=== PATIENT | female | born 1950 | race Caucasian/White ===

== ENCOUNTER → 2017-05-23 08:17 | Outpatient (CLI) | payer BC, SELFPAY ==
--- NOTE | 2017-05-23 08:20 | HPBI_ITS ---
MAMMOGRAPHY - BILATERAL SCREENING REASON FOR EXAM: Female, 66 years old. Routine annual screening examination. PERTINENT HISTORY: Sister with breast cancer. Grandmother with breast cancer. Remote right excisional breast biopsy. TECHNIQUE: Digital bilateral breast teresa (3D mammographic acquisition) in the CC and MLO projections. 2-D mediolateral oblique (MLO) and craniocaudad (CC) views of both breasts were obtained. CAD: Full Field Digital Mammography with Computer Added Detection was performed. COMPARISON: Comparison is made with prior study dated May 18, 2016 and March 13, 2015. FINDINGS: Breast Composition: There are scattered areas of fibroglandular density. There are no dominant masses or suspicious calcifications. No other significant abnormalities are identified. There has been no significant change since the prior study. HPBI/SCREENING MAMM (CAD), BILAT IMPRESSION: Stable bilateral screening mammogram. Yearly follow-up mammogram recommended. (A) ASSESSMENT CATEGORY: BIRADS Category 1: Negative. A letter regarding these results will be sent to the patient by the facility within 30 days. Approximately 10% of breast cancers are not detected by mammography. A normal mammogram should not delay biopsy of a clinically suspicious abnormality. [id number] Electronically Signed: Jas Pereyra MD at 10:20 EDT Tel [phone], Service support ,
== END ==
PROVIDERS: Family Provider Family Medicine; PCP Family Medicine; Visit Provider Family Medicine
DX: Z12.31 Encounter for screening mammogram for malignant neoplasm of breast (principal)
CPT/HCPCS: 77063; 77067

== ENCOUNTER → 2017-06-19 09:11 | Outpatient (CLI) | payer BC, SELFPAY ==
[2017-06-19 12:19] LABS: Absolute Lymphocyte Count 3.48 X10^3/ul (0.83-4.51); Absolute Neutrophil Count 3.6 X10^3/uL (2.0-7.7); Basophil# 0.03 X10^3/uL; Basophil% 0.4 % (0-1); Eosinophils% 2.5 % (0-5); Hematocrit 38.1 % (37-47); Hemoglobin 12.4 g/dl (12.0-15.0); Lymphocyte # 3.48 X10^3/ul (4.0); Lymphocyte % 43.9 % (19-41); Mean Corp Hgb Conc 32.5 g/gl (32-36); Mean Corpuscular Hgb 31.3 pg (27.0-32.0); Mean Corpuscular Volume 96.2 fL (81-99); Mean Platelet Vol. 9.9 fl (6.2-12.0); Monocyte# 0.61 X10^3/uL; Monocyte% 7.7 % (0-10); Neutrophil # 3.57 X10^3/uL (2.7-7.7); Neutrophil % 45.1 % (47-70); Platelet Count 227 K/mm3 (150-450); RBC Distribution Width CV 13.3 % (11.6-14.6); RBC Distribution Width SD 46.7 fl (35.1-43.9); Red Blood Count 3.96 M/mm3 (4.2-5.4); White Blood Count 7.9 K/mm3 (4.4-11.0)
[2017-06-19 12:21] LABS: POSITIVE COUNT NO; POSITIVE DIFFERENTIAL NO; POSITIVE MORPHOLOGY NO
[2017-06-19 12:46] LABS: BUN 22 mg/dL (7-18); Creatinine, Serum 0.74 mg/dL (0.55-1.02); EST Glomerular Filtration Rate 84 mL/min (>60); Glucose 83 mg/dL (74-106)
[2017-06-19 12:47] LABS: ALB/GLOB Ratio 1.2 RATIO (0.9-2.4); AST(SGOT) 31 U/L (15-37); Alanine Aminotransfer ALT/SGPT 79 U/L (13-56); Albumin, Serum 3.6 g/dL (3.2-5.0); Alkaline Phosphatase 80 U/L (45-117); Anion Gap 7 (5-15); BUN/Creat Ratio 29.6 RATIO (10-20); Calcium,Total 8.1 mg/dL (8.5-10.1); Chloride 103 mmol/L (98-107); Cholesterol 171 mg/dL (200); Est Glom Filt Rate - Afr Amer 101 mL/min (>60); Globulin 3.1 g/dL (2.2-4.2); High Density Lipoprotein 63 mg/dL; Potassium 3.7 mmol/L (3.5-5.1); Protein, Total 6.7 g/dL (6.4-8.2); Sodium Level 138 mmol/L (136-145); Thyroid Stim Hormone (TSH) 1.61 uIU/mL (0.358-3.74); Triglycerides 135 mg/dL; Very Low Density Lipoprotein 27 mg/dL (5-40)
== END ==
PROVIDERS: Family Provider Family Medicine; PCP Family Medicine; Visit Provider Family Medicine
DX: I10 Essential (primary) hypertension (principal); E78.5 Hyperlipidemia, unspecified; R53.83 Other fatigue
CPT/HCPCS: 36415; 80053; 80061; 84443; 85025

== ENCOUNTER → 2017-06-22 13:00 | Outpatient (CLI) | payer BC, SELFPAY | PROVIDERS: Family Provider Family Medicine; PCP Family Medicine; Visit Provider Nurse Practitioner Acute Care | DX: G47.33 Obstructive sleep apnea (adult) (pediatric) (principal) | CPT/HCPCS: 98960; G0463 ==

== ENCOUNTER → 2018-03-12 16:53 | Outpatient (CLI) | payer MEDICARE, SELFPAY ==
--- NOTE | 2018-03-12 17:01 | RAD_ITS ---
STUDY: X-RAY CHEST REASON FOR EXAM: Female, 67 years old. Cough TECHNIQUE: PA and lateral chest COMPARISON: None. FINDINGS: Slight blunting of the cost phrenic angles, most likely associated with mild atelectasis. Minimal effusion cannot be entirely excluded. Lungs otherwise clear. Normal cardiac mediastinal silhouette, kim, pleural margins. No acute osseous process. Prior cholecystectomy. RAD/Chest PA and Lateral IMPRESSION: Minimal blunting of the costophrenic angles is most likely atelectatic. Minimal effusions cannot be entirely excluded but considered unlikely. The chest is otherwise clear. Electronically Signed: Magdiel Perez MD at 15:59 EST Tel , Service support ,
== END ==
PROVIDERS: Family Provider Family Medicine; PCP Family Medicine; Referring Provider Family Medicine; Visit Provider Family Medicine
DX: J20.9 Acute bronchitis, unspecified (principal)
CPT/HCPCS: 71046

== ENCOUNTER → 2018-04-24 07:51 | Outpatient (CLI) | payer MEDICARE, OTHER, SELFPAY ==
--- NOTE | 2018-04-24 10:24 | NEURO ---
NCS and/or EMG Patient Report Ordering Doctor: Sanaz Mejia DATE OF SERVICE: 04/24/18 This is a bilateral lower extremity nerve conduction study performed on this 67-year-old female with a history of restless leg syndrome and narcolepsy and a intermittent symptom of fleeting pain and tingling radiating from the inner aspect of her feet bilaterally up her legs not associated with back pain. She has had a total of 5 episodes since January usually lasting about 1 minute usually while ambulating. She is healthy otherwise although she says she was drinking daily for approximately 2 years however in January 2018 she decreased her alcohol intake. EMG of the lower extremities was also ordered but deferred by the patient. Bilateral lower extremity sensory and motor nerve conduction studies are performed. The medial plantar responses bilaterally are absent. Sural sensory responses bilaterally demonstrate normal latencies and amplitudes. The common peroneal motor distal latencies amplitudes and conduction velocities are preserved and the tibial motor latencies and amplitudes are preserved although the conduction velocities are mildly slowed. Common peroneal and tibial F wave latencies are relatively preserved and tibial H reflex responses bilaterally are normal. Impression there is absence of the medial plantar responses bilaterally consistent with compression neuropathy bilaterally. There is no evidence of neuropathy otherwise. The patient was encouraged to continue her current abstention from alcohol. EMG testing was deferred after discussion of risks and benefits.
== END ==
PROVIDERS: Family Provider Family Medicine; PCP Family Medicine; Referring Provider Nurse Practitioner Acute Care; Visit Provider Nurse Practitioner Acute Care
DX: R20.2 Paresthesia of skin (principal); M79.604 Pain in right leg; M79.605 Pain in left leg
CPT/HCPCS: 95911

== ENCOUNTER → 2018-06-12 | Outpatient (CLI) | payer MEDICARE, SELFPAY ==
[2018-06-12 15:23] LABS: Absolute Lymphocyte Count 1.76 X10^3/ul (0.83-4.51); Absolute Neutrophil Count 2.6 X10^3/uL (2.0-7.7); Basophil# 0.06 X10^3/uL; Basophil% 1.2 % (0-1); Eosinophil# 0.13 X10^3/uL; Eosinophils% 2.7 % (0-5); Hematocrit 37.2 % (37-47); Hemoglobin 12.4 g/dl (12.0-15.0); Lymphocyte # 1.76 X10^3/ul (4.0); Mean Corp Hgb Conc 33.3 g/gl (32-36); Mean Corpuscular Hgb 30.5 pg (27.0-32.0); Mean Corpuscular Volume 91.4 fL (81-99); Mean Platelet Vol. 10.4 fl (6.2-12.0); Monocyte# 0.37 X10^3/uL; Monocyte% 7.6 % (0-10); Neutrophil # 2.56 X10^3/uL (2.7-7.7); Neutrophil % 52.3 % (47-70); Platelet Count 222 K/mm3 (150-450); RBC Distribution Width CV 12.5 % (11.6-14.6); Red Blood Count 4.07 M/mm3 (4.2-5.4); White Blood Count 4.9 K/mm3 (4.4-11.0)
[2018-06-12 15:34] LABS: POSITIVE COUNT NO; POSITIVE DIFFERENTIAL NO; POSITIVE MORPHOLOGY NO
[2018-06-12 15:46] LABS: ALB/GLOB Ratio 1.1 RATIO (0.9-2.4); AST(SGOT) 34 U/L (15-37); Alanine Aminotransfer ALT/SGPT 54 U/L (13-56); Albumin, Serum 3.9 g/dL (3.2-5.0); Alkaline Phosphatase 85 U/L (45-117); Anion Gap 6 (5-15); BUN 19 mg/dL (7-18); BUN/Creat Ratio 22.8 RATIO (10-20); Calcium,Total 8.5 mg/dL (8.5-10.1); Chloride 103 mmol/L (98-107); Cholesterol 159 mg/dL (200); Creatinine, Serum 0.83 mg/dL (0.55-1.02); EST Glomerular Filtration Rate 73 mL/min (>60); Est Glom Filt Rate - Afr Amer 88 mL/min (>60); Globulin 3.4 g/dL (2.2-4.2); Glucose 94 mg/dL (74-106); High Density Lipoprotein 50 mg/dL; Potassium 3.8 mmol/L (3.5-5.1); Protein, Total 7.3 g/dL (6.4-8.2); Sodium Level 137 mmol/L (136-145); Triglycerides 108 mg/dL; Very Low Density Lipoprotein 22 mg/dL (5-40)
== END | disposition home or self-care (01) ==
PROVIDERS: Family Provider Family Medicine; PCP Family Medicine; Visit Provider Family Medicine
DX: Z00.00 Encounter for general adult medical examination without abnormal findings (principal); E78.5 Hyperlipidemia, unspecified
CPT/HCPCS: 36415; 80053; 80061; 85025

== ENCOUNTER → 2018-07-26 09:57 | Outpatient (CLI) | payer MEDICARE, OTHER, SELFPAY ==
--- NOTE | 2018-07-26 10:01 | BI_ITS ---
MAMMOGRAPHY - BILATERAL SCREENING REASON FOR EXAM: Female, 67 years old. Routine annual screening examination. PERTINENT HISTORY: Sister with breast cancer. Grandmother with breast cancer. Remote right excisional breast biopsy. TECHNIQUE: Digital bilateral breast teresa (3D mammographic acquisition) in the CC and MLO projections. 2-D mediolateral oblique (MLO) and craniocaudad (CC) views of both breasts were obtained. CAD: Full Field Digital Mammography with Computer Added Detection was performed. COMPARISON: Comparison is made with prior study dated May 18, 2016 and March 13, 2015. FINDINGS: Breast Composition: There are scattered areas of fibroglandular density. There are no dominant masses or suspicious calcifications. Stable appearance of the small bilateral axillary lymph nodes. No other significant abnormalities are identified. There has been no significant change since the prior study. BI/SCREENING MAMM (CAD), BILAT IMPRESSION: Stable bilateral screening mammogram. Yearly follow-up mammogram recommended. (A) ASSESSMENT CATEGORY: BIRADS Category 2: Benign. A letter regarding these results will be sent to the patient by the facility within 30 days. Approximately 10% of breast cancers are not detected by mammography. A normal mammogram should not delay biopsy of a clinically suspicious abnormality. [id number] Electronically Signed: Jas Pereyra, at 12:54 EDT , Service support ,
--- NOTE | 2018-07-26 10:18 | BD_ITS ---
STUDY: DUAL ENERGY X-RAY ABSORPTIOMETRY / DXA REASON FOR EXAM: Female, 67 years old. Patient is postmenopausal. TECHNIQUE: Bone Mineral Density (BMD) measurements of lumbar spine and bilateral hips were obtained. COMPARISON: Comparison is made with prior study dated August 19, 2010. FINDINGS: Lumbar Spine (L1-L4): g/cm2 (1.317) / T-score (1.1) / Z-score (2.7) Findings are suggestive of normal bone density with a low fracture risk. Left Femur Total: g/cm2 (1.175) / T-score (1.3) / Z-score (2.6) Left Femoral Neck: g/cm2 (1.05 to) / T-score (0.1) / Z-score (1.6) Right Femur Total: g/cm2 (1.206) / T-score (1.6) / Z-score (2.8) Right Femoral Neck: g/cm2 (1.042) / T-score (0.0) / Z-score (1.5) The T-Scores on the most recent prior examination were: Lumbar Spine (L1-L4): There has been worsening of bone density since the previous examination. Left Femur Total: which represents a worsening of 0.6%. Right Femur Total: which represents an improvement of 0.5%. BD/Dexa Bone Density Study IMPRESSION: The patient is considered normal as outlined below according to World Tobin Organization (WHO) criteria with a low fracture risk. There has been worsening of bone density since the previous examination. Reference Information: The T-score is the number of standard deviations above or below the standard which is normal for young adults at their peak bone mineral density. The World Health Organization (WHO) interprets the T-scores as follows: Above -1 Normal bone density Between -1 and -2.5 Osteopenia Equal to / or below -2.5 Osteoporosis As a practical clinical guideline, osteopenia may be graded as follows: Mild -1 through -1.5 Moderate -1.6 through -2.0 Severe -2.1 through -2.4 The Z-score is the number of standard deviations above or below age-matched controls. A Z-score of less than -1.5 would be considered abnormal. References: 1. NIH Osteoporosis and Related Bone Diseases http://www.osteo.org 2. International Society for Clinical Densitometry http://www.iscd.org 3. National Osteoporosis Foundation http://www.nof.org Electronically Signed: Jas Pereyra, at 12:37 EDT , Service support ,
== END ==
PROVIDERS: Family Provider Family Medicine; PCP Family Medicine; Referring Provider Family Medicine; Visit Provider Family Medicine
DX: Z13.820 Encounter for screening for osteoporosis (principal); Z78.0 Asymptomatic menopausal state; Z12.31 Encounter for screening mammogram for malignant neoplasm of breast; Z80.3 Family history of malignant neoplasm of breast
CPT/HCPCS: 77063; 77067; 77080

== ENCOUNTER → 2020-01-18 10:17 | Outpatient (CLI) | payer MEDICARE, OTHER, SELFPAY ==
[2019-01-08 14:46] VITALS: BMI 29.2
--- NOTE | 2020-01-18 10:21 | BI_ITS ---
MAMMOGRAPHY - BILATERAL SCREENING REASON FOR EXAM: Female, 69 years old. Routine annual screening examination. PERTINENT HISTORY: Sister with breast cancer. Grandmother with breast cancer. Remote right excisional breast biopsy. TECHNIQUE: Digital bilateral breast adrianna (3D mammographic acquisition) in the CC and MLO projections. 2-D mediolateral oblique (MLO) and craniocaudad (CC) views of both breasts were obtained. CAD: Full Field Digital Mammography with Computer Added Detection was performed. COMPARISON: Comparison is made with prior study dated 07/26/2018 and 05/23/2017. FINDINGS: Breast Composition: There are scattered areas of fibroglandular density. There are no dominant masses or suspicious calcifications. Stable benign-appearing bilateral axillary lymph nodes. No other significant abnormalities are identified. There has been no significant change since the prior study. BI/SCREEN MAMM (CAD) W/ADRIANNA BILAT IMPRESSION: Stable bilateral screening mammogram. Yearly follow-up mammogram recommended. (A) ASSESSMENT CATEGORY: BIRADS Category 2: Benign. A letter regarding these results will be sent to the patient by the facility within 30 days. Approximately 10% of breast cancers are not detected by mammography. A normal mammogram should not delay biopsy of a clinically suspicious abnormality. [id number] Electronically Signed: Jas Pereyra, at 8:38 EST , Service support ,
== END ==
PROVIDERS: PCP Family Medicine; Referring Provider Family Medicine; Visit Provider Family Medicine
DX: Z12.31 Encounter for screening mammogram for malignant neoplasm of breast (principal); Z80.3 Family history of malignant neoplasm of breast
CPT/HCPCS: 77063; 77067

== ENCOUNTER 2020-05-07 11:44 | Outpatient (RCR) | payer MEDICARE, OTHER, SELFPAY ==
[2020-05-07] MEDS: COVID-19 VACC, MRNA(PFIZER)/PF 30 MCG/0.3 ML SYRINGE IM (14:37)
[2020-05-28] MEDS: COVID-19 VACC, MRNA(PFIZER)/PF 30 MCG/0.3 ML SYRINGE IM (14:07)
== END 2020-08-11 23:59 ==
LOC: IMMUN 11:44
PROVIDERS: PCP Family Medicine; Visit Provider Family Medicine
DX: Z23 Encounter for immunization (principal)
CPT/HCPCS: 0001A; 0002A; 91300

== ENCOUNTER → 2020-07-27 10:46 | Outpatient (CLI) | payer MEDICARE, OTHER, SELFPAY ==
[2020-07-27 11:22] LABS: Absolute Lymphocyte Count 2.39 X10^3/uL (0.83-4.51); Absolute Neutrophil Count 3.6 X10^3/uL (2.0-7.7); Basophil# 0.05 X10^3/uL; Basophil% 0.7 % (0-1); Eosinophil# 0.15 X10^3/uL; Eosinophils% 2.2 % (0-5); Hematocrit 40.2 % (37-47); Hemoglobin 13.5 g/dL (12.0-15.0); Lymphocyte # 2.39 X10^3/ul (0.83-4.51); Lymphocyte % 35.6 % (19-41); Mean Corp Hgb Conc 33.6 g/dL (32-36); Mean Corpuscular Hgb 30.4 pg (27.0-32.0); Mean Corpuscular Volume 90.5 fL (81-99); Mean Platelet Vol. 9.6 fl (6.2-12.0); Monocyte# 0.47 X10^3/uL; NRBC Flagged by Analyzer 0 % (0-5); Neutrophil # 3.64 X10^3/uL (2.7-7.7); Neutrophil % 54.2 % (47-70); Platelet Count 247 K/mm3 (150-450); RBC Distribution Width CV 12.7 % (11.6-14.6); RBC Distribution Width SD 42.2 fl (35.1-43.9); Red Blood Count 4.44 M/mm3 (4.2-5.4); White Blood Count 6.7 K/mm3 (4.4-11.0)
[2020-07-27 11:42] LABS: Hemoglobin A1c 5.4 % (3.8-5.6)
[2020-07-27 12:06] LABS: ALB/GLOB Ratio 1.1 RATIO (0.9-2.4); AST(SGOT) 34 U/L (15-37); Alanine Aminotransfer ALT/SGPT 65 U/L (13-56); Albumin, Serum 3.9 g/dL (3.2-5.0); Alkaline Phosphatase 81 U/L (45-117); Anion Gap 8 (5-15); BUN 14 mg/dL (7-18); BUN/Creat Ratio 17.5 RATIO (10-20); Calcium,Total 8.8 mg/dL (8.5-10.1); Chloride 97 mmol/L (98-107); Cholesterol 176 mg/dL (200); EST Glomerular Filtration Rate 76 mL/min (>60); Est Glom Filt Rate - Afr Amer 92 mL/min (>60); Free T3 2.5 pg/mL (2.18-3.98); Globulin 3.5 g/dL (2.2-4.2); Glucose 100 mg/dL (74-106); High Density Lipoprotein 54 mg/dL; Potassium 3.4 mmol/L (3.5-5.1); Protein, Total 7.4 g/dL (6.4-8.2); Sodium Level 135 mmol/L (136-145); T4 Free Direct 0.97 ng/dL (0.76-1.46); Thyroid Stim Hormone (TSH) 1.02 uIU/mL (0.358-3.74); Triglycerides 129 mg/dL; Very Low Density Lipoprotein 26 mg/dL (5-40)
== END ==
PROVIDERS: PCP Family Medicine; Referring Provider Family Medicine; Visit Provider Family Medicine
DX: I10 Essential (primary) hypertension (principal); E78.5 Hyperlipidemia, unspecified; E55.9 Vitamin D deficiency, unspecified; R53.83 Other fatigue; R73.01 Impaired fasting glucose
CPT/HCPCS: 36415; 80053; 80061; 82306; 83036; 84439; 84443; 84481; 85025

== ENCOUNTER → 2021-02-18 15:21 | Outpatient (CLI) | payer MEDICARE, OTHER, SELFPAY ==
--- NOTE | 2021-02-18 15:23 | BI_ITS ---
MAMMOGRAPHY - BILATERAL SCREENING REASON FOR EXAM: Female, 70 years old. Routine annual screening examination. PERTINENT HISTORY: Sister with breast cancer. Grandmother with breast cancer. TECHNIQUE: Digital bilateral breast adrianna (3D mammographic acquisition) in the CC and MLO projections. 2-D mediolateral oblique (MLO) and craniocaudad (CC) views of both breasts were obtained. CAD: Full Field Digital Mammography with Computer Added Detection was performed. COMPARISON: Comparison is made with prior study dated 01/18/2020 and 07/26/2018. FINDINGS: Breast Composition: The breasts are almost entirely fatty. There are no dominant masses or suspicious calcifications. Stable benign-appearing bilateral axillary No other significant abnormalities are identified. There has been no significant change since the prior study. BI/SCRN MAMM (CAD)W/ADRIANNA BILAT IMPRESSION: Stable bilateral screening mammogram. Yearly follow-up mammogram recommended. (A) ASSESSMENT CATEGORY: BIRADS Category 2: Benign. A letter regarding these results will be sent to the patient by the facility within 30 days. Approximately 10% of breast cancers are not detected by mammography. A normal mammogram should not delay biopsy of a clinically suspicious abnormality. [id number] Electronically Signed: Jas Pereyra MD at 8:28 EST , Service support ,
== END ==
PROVIDERS: PCP Family Medicine; Referring Provider Family Medicine; Visit Provider Family Medicine
DX: Z12.31 Encounter for screening mammogram for malignant neoplasm of breast (principal); Z80.3 Family history of malignant neoplasm of breast
CPT/HCPCS: 77063; 77067

== ENCOUNTER 2021-04-28 10:58 | Outpatient (CLI) | payer MEDICARE, OTHER, SELFPAY ==
[2021-04-28 12:02] LABS: NATERA MAILED SPECIMEN
== END 2021-04-28 23:59 | disposition home or self-care (01) ==
LOC: PAVLAB 11:00
PROVIDERS: PCP Family Medicine; Referring Provider Nurse Practitioner Women's Health; Visit Provider Nurse Practitioner Women's Health
DX: Z15.01 Genetic susceptibility to malignant neoplasm of breast (principal); Z80.3 Family history of malignant neoplasm of breast; Z80.0 Family history of malignant neoplasm of digestive organs
CPT/HCPCS: 36415

== ENCOUNTER 2021-05-13 20:00 | Outpatient (CLI) | payer MEDICARE, OTHER, SELFPAY | END 2021-05-13 23:59 | disposition home or self-care (01) | LOC: SL 21:14 | PROVIDERS: PCP Family Medicine; Visit Provider Nurse Practitioner Acute Care | DX: G47.33 Obstructive sleep apnea (adult) (pediatric) (principal) | CPT/HCPCS: 95810 ==

== ENCOUNTER → 2022-01-19 | Outpatient (CLI) | payer MEDICARE, OTHER, SELFPAY ==
--- NOTE | 2022-01-19 08:42 | RAD_ITS ---
STUDY: X-RAY - ESOPHAGUS (BARIUM SWALLOW) WITH FLUOROSCOPY REASON FOR EXAM: Female, 71 years old. DYSPHAGIA TECHNIQUE: 17 view(s) of the esophagus were obtained following swallowing of barium. FLUOROSCOPY TIME (if supplied): (32 seconds) minutes/seconds COMPARISON: None. FINDINGS: There is no demonstrated esophageal foreign body. There is no demonstrated stricture or mucosal abnormality. Normal gastroesophageal junction, without a demonstrated hiatal hernia. The patient ingested a 12 mm tablet of barium without any difficulty. Normal visualized aortic arch and descending thoracic aorta. Normal visualized pulmonary parenchyma. Normal visualized osseous structures of the thorax. RAD/Esophagus Single Contrast IMPRESSION: Normal plain film x-ray examination (barium swallow) of the esophagus. Electronically Signed: aJs Pereyra MD at 10:04 [facility] ,
== END | disposition home or self-care (01) ==
LOC: RAD 08:39
PROVIDERS: PCP Family Medicine; Referring Provider Otolaryngology; Visit Provider Otolaryngology
DX: R13.10 Dysphagia, unspecified (principal)
CPT/HCPCS: 74220

== ENCOUNTER → 2022-04-07 | Outpatient (CLI) | payer MEDICARE, OTHER, SELFPAY ==
--- NOTE | 2022-04-07 12:50 | BI_ITS ---
MAMMOGRAPHY - BILATERAL SCREENING REASON FOR EXAM: Female, 71 years old. Routine annual screening examination. PERTINENT HISTORY: Sister with breast cancer. Grandmother with breast cancer. Remote right excisional breast biopsy. TECHNIQUE: Digital bilateral breast adrianna (3D mammographic acquisition) in the CC and MLO projections. 2-D mediolateral oblique (MLO) and craniocaudad (CC) views of both breasts were obtained. CAD: Full Field Digital Mammography with Computer Added Detection was performed. COMPARISON: Comparison is made with prior study dated 02/18/2021 and 01/18/2020 FINDINGS: Breast Composition: The breasts are almost entirely fatty. There are no dominant masses or suspicious calcifications. Stable benign-appearing bilateral axillary lymph nodes. No other significant abnormalities are identified. There has been no significant change since the prior study. BI/SCRN MAMM (CAD)W/ADRIANNA BILAT IMPRESSION: Stable bilateral screening mammogram. Yearly follow-up mammogram recommended. (A) ASSESSMENT CATEGORY: BIRADS Category 2: Benign. A letter regarding these results will be sent to the patient by the facility within 30 days. Approximately 10% of breast cancers are not detected by mammography. A normal mammogram should not delay biopsy of a clinically suspicious abnormality. [id number] Electronically Signed: Jas Pereyra MD at 13:30 EST ,
== END | disposition home or self-care (01) ==
LOC: OPBI 12:48
PROVIDERS: PCP Family Medicine; Referring Provider Nurse Practitioner Women's Health; Visit Provider Nurse Practitioner Women's Health
DX: Z12.31 Encounter for screening mammogram for malignant neoplasm of breast (principal); Z80.3 Family history of malignant neoplasm of breast
CPT/HCPCS: 77063; 77067

== ENCOUNTER → 2023-02-07 | Outpatient (CLI) | payer MEDICARE, OTHER, SELFPAY ==
[2023-02-07 15:32] LABS: Absolute Lymphocyte Count 2.32 X10^3/uL (0.83-4.51); Absolute Neutrophil Count 2.9 X10^3/uL (2.0-7.7); Basophil# 0.06 X10^3/uL; Eosinophils% 3.4 % (0-5); Hematocrit 42.6 % (37-47); Hemoglobin 13.4 g/dL (12.0-15.0); Lymphocyte # 2.32 X10^3/ul (0.83-4.51); Lymphocyte % 39.4 % (19-41); Mean Corp Hgb Conc 31.5 g/dL (32-36); Mean Corpuscular Hgb 30.2 pg (27.0-32.0); Mean Corpuscular Volume 95.9 fL (81-99); Mean Platelet Vol. 10.4 fl (6.2-12.0); Monocyte# 0.44 X10^3/uL; Monocyte% 7.5 % (0-10); NRBC Flagged by Analyzer 0 % (0-5); Neutrophil # 2.86 X10^3/uL (2.7-7.7); Neutrophil % 48.5 % (47-70); Platelet Count 247 K/mm3 (150-450); RBC Distribution Width CV 12.8 % (11.6-14.6); RBC Distribution Width SD 45.1 fl (35.1-43.9); Red Blood Count 4.44 M/mm3 (4.2-5.4); White Blood Count 5.9 K/mm3 (4.4-11.0)
[2023-02-07 16:54] LABS: ALB/GLOB Ratio 1.1 RATIO (0.9-2.4); AST(SGOT) 39 U/L (15-37); Alanine Aminotransfer ALT/SGPT 60 U/L (13-56); Albumin, Serum 3.8 g/dL (3.2-5.0); Alkaline Phosphatase 82 U/L (45-117); Anion Gap 7 (5-15); BUN 19 mg/dL (7-18); BUN/Creat Ratio 22.7 RATIO (10-20); Calcium,Total 8.5 mg/dL (8.5-10.1); Chloride 107 mmol/L (98-107); Cholesterol 195 mg/dL (200); Creatinine, Serum 0.84 mg/dL (0.55-1.02); EST Glomerular Filtration Rate 72 mL/min (>60); Est Glom Filt Rate - Afr Amer 87 mL/min (>60); Globulin 3.6 g/dL (2.2-4.2); Glucose 102 mg/dL (74-106); High Density Lipoprotein 57 mg/dL; Potassium 4.3 mmol/L (3.5-5.1); Protein, Total 7.4 g/dL (6.4-8.2); Sodium Level 141 mmol/L (136-145); Triglycerides 168 mg/dL; Very Low Density Lipoprotein 34 mg/dL (5-40)
== END | disposition home or self-care (01) ==
LOC: BFHLAB 13:08
PROVIDERS: PCP Nurse Practitioner Family; Visit Provider Nurse Practitioner Family
DX: I10 Essential (primary) hypertension (principal); E78.5 Hyperlipidemia, unspecified; E55.9 Vitamin D deficiency, unspecified
CPT/HCPCS: 36415; 80053; 80061; 82306; 85025

== ENCOUNTER → 2023-06-16 | Outpatient (CLI) | payer MEDICARE, OTHER, SELFPAY ==
--- NOTE | 2023-06-16 12:04 | BI_ITS ---
MAMMOGRAPHY - BILATERAL SCREENING REASON FOR EXAM: Female, 72 years old. Routine annual screening examination. PERTINENT HISTORY: Sister with breast cancer. Grandmother with breast cancer. Remote right excisional breast biopsy. TECHNIQUE: Digital bilateral breast adrianna (3D mammographic acquisition) in the CC and MLO projections. 2-D mediolateral oblique (MLO) and craniocaudad (CC) views of both breasts were obtained. CAD: Full Field Digital Mammography with Computer Added Detection was performed. COMPARISON: Comparison is made with prior study April 07, 2022 and February 18, 2021. FINDINGS: Breast Composition: The breasts are almost entirely fatty. There are no dominant masses or suspicious calcifications. Stable small benign-appearing bilateral axillary lymph nodes. No other significant abnormalities are identified. There has been no significant change since the prior study. BI/SCRN MAMM (CAD)W/ADRIANNA BILAT IMPRESSION: Stable bilateral screening mammogram. Yearly follow-up mammogram recommended. (A) ASSESSMENT CATEGORY: BIRADS Category 2: Benign. A letter regarding these results will be sent to the patient by the facility within 30 days. Approximately 10% of breast cancers are not detected by mammography. A normal mammogram should not delay biopsy of a clinically suspicious abnormality. [id number] Electronically Signed: Jas Pereyra MD at 13:32 EDT ,
--- NOTE | 2023-06-16 12:04 | BD_ITS ---
STUDY: DUAL ENERGY X-RAY ABSORPTIOMETRY / DXA REASON FOR EXAM: Female, 72 years old. Bone density screening TECHNIQUE: Bone Mineral Density (BMD) measurements of lumbar spine and bilateral hips were obtained. COMPARISON: Comparison is made with prior study dated July 26, 2018. FINDINGS: Lumbar Spine (L1-L4): g/cm2 (1.134) / T-score (0.7) / Z-score (2.9) Findings are suggestive of normal bone density with a low fracture risk. Left Femur Total: g/cm2 (1.063) / T-score (1.0) / Z-score (2.5) Left Femoral Neck: g/cm2 (0.848) / T-score (0.0) / Z-score (1.8) Right Femur Total: g/cm2 (1.070) / T-score (1.0) / Z-score (2.6) Right Femoral Neck: g/cm2 (0.801) / T-score (-0.4) / Z-score (1.4) The T-Scores on the most recent prior examination were: Lumbar Spine (L1-L4): There has been worsening of bone density since the previous examination. Left Femur Total: which represents a worsening of 3.7%. Right Femur Total: which represents a worsening of 5.7%. BD/Dexa Bone Density Study IMPRESSION: The patient is considered normal as outlined below according to World Tobin Organization (WHO) criteria with a low fracture risk. There has been worsening of bone density since the previous examination. Reference Information: The T-score is the number of standard deviations above or below the standard which is normal for young adults at their peak bone mineral density. The World Health Organization (WHO) interprets the T-scores as follows: Above -1 Normal bone density Between -1 and -2.5 Osteopenia Equal to / or below -2.5 Osteoporosis As a practical clinical guideline, osteopenia may be graded as follows: Mild -1 through -1.5 Moderate -1.6 through -2.0 Severe -2.1 through -2.4 The Z-score is the number of standard deviations above or below age-matched controls. A Z-score of less than -1.5 would be considered abnormal. References: 1. NIH Osteoporosis and Related Bone Diseases www osteo.org 2. International Society for Clinical Densitometry www iscd.org 3. National Osteoporosis Foundation www nof.org Electronically Signed: Jas Pereyra MD at 10:07 EDT ,
== END | disposition home or self-care (01) ==
LOC: OPBD 12:03
PROVIDERS: PCP Nurse Practitioner Family; Referring Provider Nurse Practitioner Women's Health; Visit Provider Nurse Practitioner Women's Health
DX: M81.0 Age-related osteoporosis without current pathological fracture (principal); Z12.31 Encounter for screening mammogram for malignant neoplasm of breast; Z80.3 Family history of malignant neoplasm of breast
CPT/HCPCS: 77063; 77067; 77080

== ENCOUNTER 2023-10-18 13:57 | Emergency (ER) | payer MEDICARE, OTHER, SELFPAY ==
[2023-10-18 13:57] VITALS: BP 178/65; PULSE 65; RESP 18; TEMP 37.2; O2SAT 94
[2023-10-18 13:59] VITALS: BMI 32.0
--- NOTE | 2023-10-18 14:13 | CT_ITS ---
INDICATION: fall left face pain above eye EXAMINATION: CT FACIAL BONES - CT Maxillofacial W/O Contrast Injection TECHNIQUE: Helically acquired images were obtained of the facial bones. A radiation dose optimization technique was used for this scan. The protocol utilizes one or more of the following dose reduction techniques: automated exposure control, adjustment of mA and/or kV according to patient size,and/or use of iterative reconstruction technique. IV Contrast dosage and agent: None. RADIATION DOSAGE (If Supplied By Facility): CTDIvol = ( 29.38 ) mGy, DLP = ( 547.46 ) mGycm COMPARISON: No relevant prior comparison study available FINDINGS: SOFT TISSUES: There is soft tissue swelling overlying the left eye and the left side of the forehead. No discrete fluid collections. VISUALIZED PARANASAL SINUSES: Clear. VISUALIZED MASTOID AIR CELLS: Clear. FACIAL BONES, MANDIBLE AND TMJs: No displaced facial bone fracture. No lytic or blastic abnormality. VISUALIZED DENTITION: No periodontal osseous erosion. ORBITAL CONTENTS: Both globes, extraocular muscles and retrobulbar fat appear unremarkable. CT/Sinus/Facial Bone IMPRESSION: No facial fracture. Clear sinuses. Soft tissue swelling overlying the left eye and left side of the forehead. No orbital hematoma. Electronically Signed: Sheldon Arroyo MD at 14:53 EDT ,
--- NOTE | 2023-10-18 14:13 | CT_ITS ---
STUDY: CT BRAIN WITHOUT CONTRAST REASON FOR EXAM: Female, 72 years old. Fall RADIATION DOSAGE (If Supplied By Facility): CTDIvol = ( 44.99 ) mGy, DLP = ( 866.41 ) mGycm TECHNIQUE: Transaxial CT imaging of the brain was performed without administration of intravenous contrast material. CT scan performed according to ALARA principles. Automated exposure control used during exam. COMPARISON: No relevant prior comparison study available FINDINGS: PARENCHYMA: There is no acute bleed or infarct. There are normal white matter tracts. VENTRICLES: There is no hydrocephalus. MASTOID AIR CELLS AND PARANASAL SINUSES: The visualized paranasal sinuses are clear. The mastoid air cells are clear. BONES: There is no skull fracture. SOFT TISSUES: There is soft tissue swelling on the left side of the forehead. CT/Brain/Head without Contrast IMPRESSION: No acute intracranial abnormality. Left forehead soft tissue swelling. Electronically Signed: Sheldon Arroyo MD at 14:50 EDT ,
[2023-10-18] MEDS: Diphth,Pertuss(Acell),Tet Vac 0.5 ML Vial IM (14:18)
--- NOTE | 2023-10-18 14:52 | EX.ED.DYSGE1 ---
HPI History of Present Illness Chief Complaint: Fall Narrative Narrative: Patient is a 72-year-old female with past medical history of anxiety, depression, hypertension who presented to the emergency department with a chief complaint of fall. Patient states that she dropped her mother off at the hospital here for appointment parked the car and was walking into the building. She states that she had foot flops on that she tripped over landing forward. States that she is try to catch herself but states that this happened so fast that she did hit her face. Patient states that she not pass out lose consciousness she remembers the entire event. Patient's denies any blood thinning medications. Patient states that she is unsure when her last tetanus shot was. Patient states that she did not develop any lightheadedness, dizziness, chest pain, shortness of breath prior to her fall she states that she simply tripped over her sandal and fell. Patient states that she does a mild headache here in the emergency department. [facility] Medical History Restless leg Depression Sleep apnea Hyperlipidemia Seasonal allergies HTN (hypertension) Home Medications ?Medication ?Instructions ?Recorded ?Last Taken ?Type armodafinil 250 mg tablet 250 mg PO DAILY 02/12/16 Unknown History cholecalciferol (vitamin D3) 25 2,000 unit PO DAILY 02/12/16 Unknown History mcg (1,000 unit) tablet coenzyme Q10 200 mg capsule 200 mg PO DAILY 02/12/16 Unknown History irbesartan 150 mg tablet 150 mg PO QHS 02/12/16 Unknown History simvastatin 20 mg tablet 20 mg PO QHS 02/12/16 10/17/23 History omega-3 fatty acids 1,000 mg 1,000 mg PO DAILY 08/01/18 10/18/23 History capsule (Fish Oil Concentrate) triamcinolone acetonide 55 mcg 1 spray intranasal DAILY 08/01/18 Unknown History nasal spray aerosol (Nasacort) venlafaxine 150 mg PO 90 days #90 caps 08/01/18 Unknown History capsule,extended release 24 hr Fluad Quad [id number](65yr up)(PF) 60 mcg IM ONCE #0.5 mL 01/23/20 Unknown Clinic 60 mcg (15 mcg x 4)/0.5mL IM syringe (flu vac 2019 [id number](PF)) doxycycline hyclate 20 mg tablet 20 mg PO BID 04/28/21 10/18/23 History ropinirole 1 mg tablet 1 mg PO QHS #60 tabs 06/04/21 Unknown Rx Allergy/AdvReac Type Severity Reaction Status Date / Time hydrocodone (From Vicodin) AdvReac Chest Verified 10/18/23 15:15 tightness Family History Sister Breast cancer Pancreatic cancer Father Heart disease Hypertension Diabetes TYPE 2 Mother Hypertension Surgical History ORAL JAISON REMOVED L EAR STAPENDECTOMY W/ IMPLANT History of ear surgery BLADDER SLING S/P EDUARDO (total abdominal hysterectomy) History of tonsillectomy and adenoidectomy Social History household members: other current occupational status: retired Smoking Status: Never smoker alcohol intake: current alcohol intake frequency: a few times a week Alcohol type: wine substance use type: does not use diet: other what type of physical activity do you participate in: walking, swimming and weight training frequency: 3-4 times per week seatbelt use: always do you feel safe at home: Yes additional social history: single ROS ROS ED ROS Narrative Constitutional: Complains of a slight headache as noted above patient denies any fevers, chills, lightheadedness, dizziness Eyes: Denies change in vision double vision blurry vision Cardiovascular: Denies chest pain or palpitations Respiratory: Denies coughing wheezing shortness of breath Abdomen: Denies abdominal pain nausea vomit diarrhea : Denies any urinary symptoms Neurological: Denies any numbness, weakness, tingling Musculoskeletal: States that her face is bothering her from hitting on the ground however denies any other pain Skin: States that she did scratch her face on the pavement EXAM Physical Exam Narrative Exam Narrative: General: Patient lying in bed rest comfortably did not appear to be in acute distress Head: Patient does have some superficial abrasions noted on the left side of her face no active bleeding noted and her chin, normocephalic Eyes: PERRL bilaterally, EOMI bilateral, no conjunctival injection noted Neck: Soft, supple, trach midline, no tenderness palpation midline cervical spine patient has full range of motion of her neck without any pain Cardiovascular: Regular rate and rhythm no murmurs gallops rubs noted Respiratory: Clear to auscultation bilaterally no rales rhonchi wheeze noted Abdomen: Soft, nondistended, nontender to palpation, bowel sounds present x 4 Musculoskeletal: All bony prominences palpated and joints taken through full range of motion no pain elicited, no midline tenderness palpation in the midline of the thoracolumbar spine, no step-offs or deformities noted Extremities: +5/5 strength noted in the bilateral upper and lower extremities, no pedal edema on exam, radial pulses +2/4 in the bilateral upper extremities Neurological: Patient follow commands knew that she was at [facility] the year is 2023 Skin: Patient has a superficial abrasion over her right elbow CT head Const Vital Signs: 10/18/23 13:57 10/18/23 14:05 Temperature 98.9 F Temperature Source Temporal Pulse Rate 65 Respiratory Rate 18 Respiratory Effort Normal Respiratory Depth Normal Respiratory Pattern Normal Blood Pressure 178/65 H Blood Pressure Mean 102 Pulse Ox 94 Oxygen Delivery Method Room Air Room Air MDM MDM MDM Narrative Medical decision making narrative: Patient is a 72-year-old female who presents to the emergency department after mechanical fall. On the differential diagnosis includes but not limited to intracranial hemorrhage, facial fracture, superficial abrasions. Patient was offered pain medication she states that she does not want any at this point time. Patient's tetanus shot will be updated here in the emergency department. Patient's CT head without contrast showed no acute intracranial abnormality there is left forehead soft tissue swelling. Patient's CT face showed no acute facial fracture clear sinuses. There is soft tissue swelling overlying the left eye and the left side of the forehead no orbital hematoma noted. On reevaluation the patient she states that she would like to go home at this point in time. Patient was noted to be hypertensive here in the emergency department she is on antihypertensives at home and states that she normally takes these at night so has not taken her medication yet. She is asymptomatic at this point in time. She was encouraged to keep a close eye on her blood pressure take her medication as prescribed and follow-up with her primary care physician in the outpatient setting. She was encouraged to return with worsening symptoms or concerns. Patient was encouraged to use Tylenol for her headaches. All question concerns answered she was discharged home in stable condition. Radiography Diagnostic Testing: Clinical Impression(s) from Imaging Studies Brain CT 10/18/23 14:13 IMPRESSION: No acute intracranial abnormality. Left forehead soft tissue swelling. Electronically Signed: Sheldon Arroyo MD at 14:50 EDT , Facial/Sinus 10/18/23 14:13 IMPRESSION: No facial fracture. Clear sinuses. Soft tissue swelling overlying the left eye and left side of the forehead. No orbital hematoma. Electronically Signed: Sheldon Arroyo MD at 14:53 EDT , Discharge Plan Triage Chief Complaint: Fall ED Provider: Lee Rivera Dx/Rx/DC Orders Clinical Impression: Fall Instructions: ED Mechanical Fall Prescriptions: No Action venlafaxine 150 mg capsule,extended release 24hr PO 90 Days Qty: 90 omega-3 fatty acids [Fish Oil Concentrate] 1,000 mg capsule 1,000 mg PO DAILY triamcinolone acetonide [Nasacort] 55 mcg aerosol,spray 1 spray INTRANASAL DAILY Fluad Quad 2020-21(65y up)(PF) 60 mcg (15 mcg x 4)/0.5 mL syringe 60 mcg IM ONCE Qty: 0.5 0RF doxycycline hyclate 20 mg tablet 20 mg PO BID simvastatin 20 MG tablet 20 mg PO QHS irbesartan 150 MG tablet 150 mg PO QHS coenzyme Q10 200 MG capsule 200 mg PO DAILY cholecalciferol (vitamin D3) 1,000 UNIT tablet 2,000 unit PO DAILY armodafinil 250 MG tablet 250 mg PO DAILY ropinirole 1 mg tablet 1 mg PO QHS Qty: 60 0RF Rx Instructions: administer 1-3 hours before bedtime Primary Care Provider: Lainey Gee Referrals: Dolores Day, SIGNAL INTEGRITY ENGINEER-C [Non-Staff] - Activity Restrictions/Additional Instructions: Follow-up with your doctor in the outpatient setting. Return for worsening symptoms or any other concerns as discussed here in the emergency department. Print Language: Syrian Disposition Disposition: Home, Self Care
== END 2023-10-18 15:32 | disposition home or self-care (01) ==
PROVIDERS: Emergency Provider Emergency Medicine; PCP Family Medicine; Visit Provider Emergency Medicine
DX: R51.9 Headache, unspecified (principal); G47.30 Sleep apnea, unspecified; I10 Essential (primary) hypertension; F32.A Depression, unspecified; E78.5 Hyperlipidemia, unspecified; W19.XXXA Unspecified fall, initial encounter; Z79.899 Other long term (current) drug therapy; Z23 Encounter for immunization
CPT/HCPCS: 70450; 70486; 90471; 90715; 99282

== ENCOUNTER → 2023-11-27 | Outpatient (CLI) | payer MEDICARE, OTHER, SELFPAY ==
[2023-11-27 14:24] LABS: Absolute Lymphocyte Count 2.61 X10^3/uL (0.83-4.51); Absolute Neutrophil Count 2.9 X10^3/uL (2.0-7.7); Basophil# 0.06 X10^3/uL; Eosinophil# 0.19 X10^3/uL; Eosinophils% 3.1 % (0-5); Hematocrit 41.7 % (37-47); Hemoglobin 13.4 g/dL (12.0-15.0); Lymphocyte # 2.61 X10^3/ul (0.83-4.51); Lymphocyte % 42.2 % (19-41); Mean Corp Hgb Conc 32.1 g/dL (32-36); Mean Corpuscular Hgb 30.8 pg (27.0-32.0); Mean Corpuscular Volume 95.9 fL (81-99); Mean Platelet Vol. 9.9 fl (6.2-12.0); Monocyte# 0.42 X10^3/uL; Monocyte% 6.8 % (0-10); NRBC Flagged by Analyzer 0 % (0-5); Neutrophil # 2.88 X10^3/uL (2.7-7.7); Neutrophil % 46.6 % (47-70); Platelet Count 255 K/mm3 (150-450); RBC Distribution Width CV 12.5 % (11.6-14.6); RBC Distribution Width SD 44.7 fl (35.1-43.9); Red Blood Count 4.35 M/mm3 (4.2-5.4); White Blood Count 6.2 K/mm3 (4.4-11.0)
[2023-11-27 15:02] LABS: Vitamin D,25 Hydroxy 42.2 ng/mL
[2023-11-27 15:06] LABS: ALB/GLOB Ratio 1.1 RATIO (0.9-2.4); AST(SGOT) 41 U/L (15-37); Alanine Aminotransfer ALT/SGPT 62 U/L (13-56); Albumin, Serum 3.8 g/dL (3.2-5.0); Alkaline Phosphatase 74 U/L (45-117); Anion Gap 6 (5-15); BUN 15 mg/dL (7-18); BUN/Creat Ratio 17.6 RATIO (10-20); Calcium,Total 8.8 mg/dL (8.5-10.1); Chloride 107 mmol/L (98-107); Cholesterol 208 mg/dL (200); Creatinine, Serum 0.85 mg/dL (0.55-1.02); EST Glomerular Filtration Rate 70 mL/min (>60); Est Glom Filt Rate - Afr Amer 84 mL/min (>60); Globulin 3.6 g/dL (2.2-4.2); Glucose 122 mg/dL (74-106); High Density Lipoprotein 62 mg/dL; Potassium 4.2 mmol/L (3.5-5.1); Protein, Total 7.4 g/dL (6.4-8.2); Sodium Level 141 mmol/L (136-145); T4 Free Direct 0.85 ng/dL (0.76-1.46); Triglycerides 153 mg/dL; Very Low Density Lipoprotein 31 mg/dL (5-40)
== END | disposition home or self-care (01) ==
LOC: LAB 13:41
PROVIDERS: PCP Family Medicine; Referring Provider Nurse Practitioner Family; Visit Provider Nurse Practitioner Family
DX: I10 Essential (primary) hypertension (principal); E78.5 Hyperlipidemia, unspecified; E03.9 Hypothyroidism, unspecified; E55.9 Vitamin D deficiency, unspecified
CPT/HCPCS: 36415; 80053; 80061; 82306; 84439; 84443; 85025

== ENCOUNTER 2024-04-16 11:49 | Day surgery (SDC) | payer MEDICARE, OTHER, SELFPAY ==
[2024-04-16] VITALS (9 sets, daily range): BP systolic 95–123; BP diastolic 46–63; PULSE 65–73; RESP 16–18; TEMP 36.3–36.8; O2SAT 95–100; BMI 28.1
--- NOTE | 2024-04-16 | IMM_PTH ---
PATIENT: EMRE BIRD LOC: EN U#:[id number] AGE/SX: 73/F ROOM: RE04/16/[address]: Dr. Giovani Thompson DO : 1950 BED: DIS: 04/16/2024 SPEC #: [id number] RECD: 04/18/24 10:29 STATUS: REGGIE REQ #: [id number] OBEY: 04/16/24 00:[address]: Giovani Thompson DEPT: IMMUNOHISTOCHEMISTRY RECD BY: Dev Marlow ENTERED: 04/18/24 10:30 SP TYPE: IMMUNO OTHR DR: Dr. Lainey Gee DO Tissues: Esophagus, NOS Procedures: P53 (initial) KI-67 (add) PHYSICIAN & INSTITUTION [place] [id number] SPECIMEN INFORMATION: Tissue Source: Distal esophagus biopsy Clinical Info: GERD, history of colon polyps, family history of malignant neoplasm of colon Specimen Number: [id number] CPT code: 13428,96121 METHODOLOGY: Deparaffinized sections of prefer/formalin-fixed tissue or PAP/DQ stained slides are incubated with monoclonal/polyclonal antibodies/oligonucleotide probes. Localization is made via biotin free immunoperoxidase method. Appropriate controls are performed and reacted as expected. Results on target cell population are indicated in the following table: RESULTS: ANTIBODY / CLONE RESULT P53 (DO-7) negative (null pattern) Ki-67 (30-9) positive, low These tests were developed and their performance characteristics determined by [facility]. They may not have been cleared or approved by the U.S. Food and Drug Administration. The FDA has determined that such clearance or approval is not necessary. The above immunohistochemical/dualISH markers are ordered and reviewed by the Pathologist. INTERPRETATION: Distal esophagus, biopsy: Negative for dysplasia. 04/19/2024
--- NOTE | 2024-04-16 13:30 | PRE.ANES_ITS ---
ASA Classification* ASA Classification ASA Classification: 2 Assessment & Plan Anesthesia* Anesthesia Assessment Anesthesia Assessment: Discussed sedation and/or anesthesia options, risks, benefits, and alternatives with patient/parents/legal guardian/POA. Questions invited. The patient/parents/legal guardian/POA seems to understand and agrees to proceed with anesthesia plan. Reviewed the physical assessment, medical history, allergy history and patient home medications list prior to surgery/procedure/anesthetic and documented any changes. Performed airway and anesthesia risk assessments. Anesthesia Type Anesthesia Type: MAC History Source History Obtained from:: Patient and Chart Anesthesia Focused Assessment* Temperature: 98.2 F Pulse Rate: 65 Blood Pressure: 123/61 Respiratory Rate: 16 Pulse Ox: 95 Oxygen Delivery Method: Room Air Airway Assessment Mouth opens: >3 cm Mallampati Score: II Teeth Condition: Caps/Crowns (Patient has several caps throughout her mouth. Everything is tight.) Neck Range of motion (ROM): Full ROM Focused Labs Anesthesia Preop lab: CBC WBC 6.2 K/mm3 (4.4-11.0) 11/27/23 13:44 11/27/23 RBC 4.35 M/mm3 (4.2-5.4) 11/27/23 13:44 11/27/23 Hgb 13.4 g/dL (12.0-15.0) 11/27/23 13:44 11/27/23 Hct 41.7 % (37-47) 11/27/23 13:44 11/27/23 Plt Count 255 K/mm3 (150-450) 11/27/23 13:44 11/27/23 CHEMISTRY Potassium 4.2 mmol/L (3.5-5.1) 11/27/23 13:44 11/27/23 Sodium 141 mmol/L (136-145) 11/27/23 13:44 11/27/23 BUN 15 mg/dL (7-18) 11/27/23 13:44 11/27/23 Creatinine 0.85 mg/dL (0.55-1.02) 11/27/23 13:44 11/27/23 Glucose 122 mg/dL (74-106) H 11/27/23 13:44 11/27/23 TSH 1.630 uIU/mL (0.358-3.740) 11/27/23 13:44 11/05 05/27 COAG Pre-Assessment Diagnosis/Proposed Procedure Planned Operative Procedure(s): COLONOSCOPY, EGD Anesthesia History Anesthesia History - frame and scrap crusher: Anesthesia History - frame and scrap crusher Hx Hospitalization No 04/11/24 14:15 Any Problems With Anesthesia No 04/11/24 14:15 Cholinesterase deficiency No 04/11/24 14:15 You/Your Family Experience No 04/11/24 14:15 fever (hyperthermia) with Relationship Recent Exposure to Contagious No 04/16/24 12:44 Disease Does patient have nerve No 04/11/24 14:15 stimulator Patient instructed to have device shut off --Does patient have Pacemaker No 04/16/24 12:44 or ICD? When Was Last Pacemaker Check QUESTION #4 FULL TEXT: You/Your Family Experience fever (hyperthermia) with Anesthesia Last Oral Intake Last Oral intake: Last Oral Intake NPO since 09:00 04/16/24 12:44 Meds taken in AM with sips of No 04/16/24 12:44 water? Meds patient instructed to take am of surgery Any additional information?: Yes NPO since: 10:00 (Patient had water at 10 AM.) Meds taken in AM with sips of water?: No PONV PONV - frame and scrap crusher: PONV - frame and scrap crusher Female Yes 04/11/24 14:15 HX of Motion Sickness No 04/11/24 14:15 HX of N/V After Surgery No 04/11/24 14:15 Non-Smoker Yes 04/11/24 14:15 Duration of Surgery greater No 04/11/24 14:15 than 60 minutes Number of Risk Factors 2 04/11/24 14:15 PONV Score Moderate Risk 04/11/24 14:15 Height & Weight Height & Weight: Anesthesia: Height & Weight Height 5 ft 8 in 04/16/24 12:44 Weight: 84 kg 04/16/24 12:44 Body Mass Index (BMI) 28.1 04/16/24 12:44 Respiratory Assessment Respiratory Assessment - frame and scrap crusher: Respiratory Tract Infection Hx - frame and scrap crusher Hx Respiratory Tract Infection No 04/11/24 14:15 STOP Sleep Apnea STOP Sleep Apnea - frame and scrap crusher: STOP Sleep Apnea - frame and scrap crusher Hx Hypertension Yes: CONTROLLED ON MEDS 04/11/24 14:15 Hx Sleep Apnea Yes 04/11/24 14:15 CPAP No: DIDN'T MEET MEDICARE 04/11/24 14:15 GUIDELINES BIPAP No 04/11/24 14:15 Do you snore loudly (louder than talking or can be heard Do you often feel tired/ fatigued/ sleepy during daytime? Has anyone observed you stop breathing during sleep? STOP Results Positive 04/11/24 14:15 QUESTION #5 FULL TEXT : Do you snore loudly (louder than talking or can be heard through closed doors)? 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 Specify any problems Hx of Preganancy in last 3 No 04/11/24 14:15 Months Nurse Filling Out Transfusion MGRIFFITH 04/11/24 14:15 & Questions: Date: 04/11/24 04/11/24 14:15 Time: 14:20 04/11/24 14:15 Patient unable to answer at this time (ie. confused, unrespo /Reproduction History /Reproductive History - frame and scrap crusher: /Reproductive Hx- frame and scrap crusher Hx Now Gestational Age (in weeks): EDC: Hx Hx Para Hx Section SAB No 06/20/23 13:39 PFSH Medical History Wears hearing aid Wears glasses Alcohol use Fatty liver Injury of head and neck Difficulty swallowing Gastric reflux Former smoker History of stress test Restless leg Depression Sleep apnea Hyperlipidemia Seasonal allergies HTN (hypertension) Home Medications ?Medication ?Instructions ?Recorded ?Last Taken ?Type armodafinil 250 mg tablet 250 mg PO DAILY 02/12/1612/28 History cholecalciferol (vitamin D3) 25 2,000 unit PO DAILY 04/13/24 History mcg (1,000 unit) tablet coenzyme Q10 200 mg capsule 200 mg PO DAILY 02/12/16 0 04/13/24 History irbesartan 150 mg tablet 150 mg PO QHS 02/12/1604/15 History simvastatin 20 mg tablet 20 mg PO QHS 02/12/16 History omega-3 fatty acids 1,000 mg 1,000 mg PO TID 08/01/18 04/13/24 History capsule (Fish Oil Concentrate) triamcinolone acetonide 55 mcg 1 spray intranasal KAILA Y 08/01/18 Unknown History nasal spray aerosol (Nasacort) venlafaxine 150 mg 150 mg PO DAILY 90 days #90 caps 08/01/18 04/15/24 History capsule,extended release 24 hr doxycycline hyclate 20 mg tablet 20 mg PO BID 04/28/21 04/15/24 History gabapentin 300 mg capsule 600 mg PO QHS 02/08/2404/15 History semaglutide (weight loss) 0.5 0.5 mg subcut QWEEK 07/2704/09/24 History mg/0.5 mL subcutaneous pen injector [id number]-Ca carb-vit K 1 tab PO DAILY 08/28 Unknown History 18 mg iron-400 mcg-500 mg tablet (One-A-Day Womens Formula) Allergy/AdvReac Type Severity Reaction Status Date / Time hydrocodone (From Vicodin) AdvReac Chest Verified 04/16/24 12:41 tightness Family History Sister Breast cancer Pancreatic cancer Father Heart disease Hypertension Diabetes TYPE 2 Mother Hypertension Surgical History History of colonoscopy ORAL JAISON REMOVED L EAR STAPENDECTOMY W/ IMPLANT History of ear surgery BLADDER SLING S/P EDUARDO (total abdominal hysterectomy) History of tonsillectomy and adenoidectomy Social History household members: other current occupational status: retired Smoking Status: Former smoker alcohol intake: current alcohol intake frequency: a few times a week Alcohol type: wine substance use type: does not use diet: other what type of physical activity do you participate in: walking, swimming and weight training frequency: 3-4 times per week seatbelt use: always do you feel safe at home: Yes additional social history: single Review of Systems (Anesthesia) ROS Narrative System reviewed and no additional complaints, except as documented.
--- NOTE | 2024-04-16 13:30 | COLBX_PTH ---
PATIENT: EMRE BIRD LOC: EN U#:[id number] AGE/SX: 73/F ROOM: RE04/16/[address]: Dr. Giovani Thompson DO : 1950 BED: DIS: 04/16/2024 SPEC #: [id number] RECD: 04/17/24 07:22 STATUS: REGGIE ANDERSON #: [id number] OBEY: 04/16/24 13:[address]: Giovani Thompson DEPT: SURGICAL PATHOLOGY RECD BY: Joe Clay ENTERED: 04/17/24 09:24 SP TYPE: COLON BX OTHR DR: Dr. Lainey Gee DO Tissues: Esophagus, NOS Procedures: Special Stain Group I Surgery Specimen Level IV Alcian Blue/PAS (control) HEADER OPERATION: Colonoscopy, EGD with biopsy PRE-OP DIAGNOSIS: GERD, history of colon polyps, family history of malignant neoplasm of colon TISSUE SUBMITTED: Distal esophagus biopsy MICROSCOPIC DIAGNOSIS Distal esophagus, biopsy: Fragments of gastroesophageal mucosa with focal intestinal metaplasia (goblet cell metaplasia), consistent with Nelson's esophagus. Mild chronic inflammation and minimal acute inflammation. Negative for dysplasia. See comment. 04/18/2024 COMMENT Alcian blue/PAS stain with matched control is used in the evaluation of the specimen. Immunohistochemistry ([id number]) for P53 and Ki-67 will be performed, and results will be reported separately. MICROSCOPIC DESCRIPTION Slides are reviewed. GROSS DESCRIPTION Received in fixative is one container labeled with the patient's name and designated Distal esophagus biopsy. The specimen consists of two irregular fragments of light singh soft tissue that in aggregate measure 0.7 x 0.6 x 0.1 cm. The specimen is totally submitted in one cassette. MS/mr 04/17/2024 TC:3 CPT:28569,11524
--- NOTE | 2024-04-16 14:04 | PCM.HP.STD ---
HPI - General General Date of Admission: 04/16/24 Date of Service: 04/16/24 Chief Complaint: GERD and personal history of polyps HPI Narrative EMRE BIRD, is a 73 F who presents today for and egd and colonoscopy. *I established 02.08.24 pt reports she is establishing care because she is due for a colonoscopy. Last scope was in [address] Dukes; large polyp was found and was told to follow up in 7 years. Pt states that she has occasional HB; apple cider vinegar is effective. Has tried omeprazole and this was ineffective. [facility] Medical History Wears hearing aid Wears glasses Alcohol use Fatty liver Injury of head and neck Difficulty swallowing Gastric reflux Former smoker History of stress test Restless leg Depression Sleep apnea Hyperlipidemia Seasonal allergies HTN (hypertension) Home Medications ?Medication ?Instructions ?Recorded ?Last Taken ?Type armodafinil 250 mg tablet 250 mg PO DAILY 02/12/16 04/15/24 History cholecalciferol (vitamin D3) 25 2,000 unit PO DAILY 02/12/16 04/13/24 History mcg (1,000 unit) tablet coenzyme Q10 200 mg capsule 200 mg PO DAILY 02/12/16 04/13/24 History irbesartan 150 mg tablet 150 mg PO QHS 02/12/16 04/15/24 History simvastatin 20 mg tablet 20 mg PO QHS 02/12/16 04/15/24 History omega-3 fatty acids 1,000 mg 1,000 mg PO TID 08/01/18 04/13/24 History capsule (Fish Oil Concentrate) triamcinolone acetonide 55 mcg 1 spray intranasal DAILY 08/01/18 Unknown History nasal spray aerosol (Nasacort) venlafaxine 150 mg 150 mg PO DAILY 90 days #90 caps 08/01/18 04/15/24 History capsule,extended release 24 hr doxycycline hyclate 20 mg tablet 20 mg PO BID 04/28/21 04/15/24 History gabapentin 300 mg capsule 600 mg PO QHS 02/08/24 04/15/24 History semaglutide (weight loss) 0.5 0.5 mg subcut QWEEK 02/08/24 04/09/24 History mg/0.5 mL subcutaneous pen injector [id number]-[id number]-icyu-FA-Ca carb-vit K 1 tab PO DAILY 04/11/24 Unknown History 18 mg iron-400 mcg-500 mg tablet (One-A-Day Womens Formula) Allergy/AdvReac Type Severity Reaction Status Date / Time hydrocodone (From Vicodin) AdvReac Chest Verified 04/16/24 12:41 tightness Family History Sister Breast cancer Pancreatic cancer Father Heart disease Hypertension Diabetes TYPE 2 Mother Hypertension Surgical History History of colonoscopy ORAL JAISON REMOVED L EAR STAPENDECTOMY W/ IMPLANT History of ear surgery BLADDER SLING S/P EDUARDO (total abdominal hysterectomy) History of tonsillectomy and adenoidectomy Social History household members: other current occupational status: retired Smoking Status: Former smoker alcohol intake: current alcohol intake frequency: a few times a week Alcohol type: wine substance use type: does not use diet: other what type of physical activity do you participate in: walking, swimming and weight training frequency: 3-4 times per week seatbelt use: always do you feel safe at home: Yes additional social history: single ROS Constitutional Constitutional: Denies fatigue, fever(s), poor appetite, weight gain or weight loss Gastrointestinal Gastrointestinal: Denies belching, bloating, change in bowel habits, change in stool character, chewing difficulty, coffee ground emesis, constipation, cramping, diarrhea, dyspepsia, dysphagia, early satiety, excessive flatus, fecal incontinence, heartburn, hematemesis, hematochezia, hemorrhoids, loose stools, melena, nausea, odynophagia, rectal bleeding, tenesmus, vomiting or weight changes Vital Signs Vital Signs Vital Signs: 04/16/24 12:44 04/16/24 12:44 04/16/24 13:36 Temperature 98.2 F 98.2 F Temperature Source Temporal Pulse Rate 65 65 Respiratory Rate 16 16 Respiratory Pattern Normal Blood Pressure 123/61 H 123/61 H Blood Pressure Mean 81 Blood Pressure Source Monitor Blood Pressure Position Supine Blood Pressure Location Left Arm Pulse Ox 95 95 Oxygen Delivery Method Room Air Room Air Weight Weight: 185 lb 3.013 oz Body Mass Index (BMI) 28.1 Assessment & Plan Assessment/Plan (1) GERD (gastroesophageal reflux disease): (2) History of colon polyps: (3) Family history of malignant neoplasm of colon: PLAN: Plan Assessment and Plan Assessment and Plan (1) History of colon polyps: Status: Acute Plan: We will schedule her for a surveillance colonoscopy. She was explained alternatives, risk and benefits include not withstanding bleeding, infection, sepsis, perforation, need for return to . She will have an ASA of 3. (2) Family history of malignant neoplasm of colon: Status: Acute (3) GERD (gastroesophageal reflux disease): Status: Acute Plan: She has never had upper endoscopy. We will evaluate her GI tract and see why she has been refractory to [id number] and medical therapy.
--- NOTE | 2024-04-16 14:54 | OP.CCLET_ITS ---
04/16/2024 Lainey Gee [address] [facility] [place] [address] Re : Upper GI endoscopy procedure for Frances Sahni Dear Dr. Gee This procedure was performed on Tuesday, April 16, 2024. My impressions and recommendations are as follows: Impressions : - LA Grade A reflux esophagitis with no bleeding. Biopsied. - Small hiatal hernia. - No gross lesions in the entire stomach. - No gross lesions in the second portion of the duodenum. Recommendations : - Discharge patient to home. - Resume previous diet. - Continue present medications. - Await pathology results. My findings are described in the full procedure note, which is enclosed. If I can be of further assistance, please feel free to contact me at . Sincerely, Giovani Thompson, 04/16/2024 2:54:09 PM This report has been signed electronically.
--- NOTE | 2024-04-16 14:54 | OP.EGD_ITS ---
Patient Name: Frances Sahni Procedure Date: 04/16/2024 2:12 PM Date of : 1950 Age: 73 Procedure: Upper GI endoscopy Indications: Heartburn Providers: Giovani Thompson DO Referring MD: Lainey Gee Medicines: Monitored Anesthesia Care Patient Profile: Refer to note in patient chart for documentation of history and physical. Patient has symptoms of chronic heartburn. Complications: No immediate complications. Procedure: Pre-Anesthesia Assessment: - Prior to the procedure, a History and Physical was performed, and patient medications and allergies were reviewed. The patient is competent. The risks and benefits of the procedure and the sedation options and risks were discussed with the patient. All questions were answered and informed consent was obtained. Patient identification and proposed procedure were verified by the physician in the pre-procedure area. Mental Status Examination: alert and oriented. Airway Examination: normal oropharyngeal airway and neck mobility. Respiratory Examination: clear to auscultation. CV Examination: normal. Prophylactic Antibiotics: The patient does not require prophylactic antibiotics. Prior Anticoagulants: The patient has taken no anticoagulant or antiplatelet agents except for NSAID medication. ASA Grade Assessment: II - A patient with mild systemic disease. After reviewing the risks and benefits, the patient was deemed in satisfactory condition to undergo the procedure. The anesthesia plan was to use monitored anesthesia care (MAC). Immediately prior to administration of medications, the patient was re-assessed for adequacy to receive sedatives. The heart rate, respiratory rate, oxygen saturations, blood pressure, adequacy of pulmonary ventilation, and response to care were monitored throughout the procedure. The physical status of the patient was re-assessed after the procedure. After obtaining informed consent, the endoscope was passed under direct vision. Throughout the procedure, the patient's blood pressure, pulse, and oxygen saturations were monitored continuously. The pediatric colonoscope was introduced through the mouth, and advanced to the duodenal bulb. The upper GI endoscopy was accomplished without difficulty. The patient tolerated the procedure well. Scope In: 2:24:27 PM Scope Out: 2:26:25 PM Total Procedure Duration Time 0 hours 1 minute 58 seconds Findings: LA Grade A (one or more mucosal breaks less than 5 mm, not extending between tops of 2 mucosal folds) esophagitis with no bleeding was found 39 to 41 cm from the incisors. Biopsies were taken with a cold forceps for histology. Verification of patient identification for the specimen was done. Estimated blood loss was minimal. A small hiatal hernia was present. No gross lesions were noted in the entire examined stomach. No gross lesions were noted in the second portion of the duodenum. Impression: - LA Grade A reflux esophagitis with no bleeding. Biopsied. - Small hiatal hernia. - No gross lesions in the entire stomach. - No gross lesions in the second portion of the duodenum. Recommendation: - Discharge patient to home. - Resume previous diet. - Continue present medications. - Await pathology results. Procedure Code(s): --- Professional --- 11211, Esophagogastroduodenoscopy, flexible, transoral; with biopsy, single or multiple CPT copyright 2021 [employer] [place] [employer]. All rights reserved. The codes documented in this report are preliminary and upon solutions architect review may be revised to meet current compliance requirements. Giovani Thompson DO 04/16/2024 2:54:09 PM This report has been signed electronically. Number of Addenda: 0 Note Initiated On: 04/16/2024 2:12 PM
--- NOTE | 2024-04-16 14:55 | PCM.POST.ANE ---
Anesthesia: Postop Eval I Current Vital Signs Temperature: 97.3 F Pulse Rate: 73 Blood Pressure: 95/46 Respiratory Rate: 16 Pulse Ox: 99 Oxygen Delivery Method: Room Air Assessment Airway patent: Yes Spontaneous unlabored respirations: Yes Mental status: Awake and Calm nausea: No Vomiting: No Anesthesia Complication: No Fluid Hydration Crystalloid volume administer (ml): 45 Total IV fluid infused: 45 Progress Note Anesthesia document: Postop Eval 1 completed: Yes
--- NOTE | 2024-04-16 14:57 | OP.COLON_ITS ---
Patient Name: Frances Sahni Procedure Date: 04/16/2024 2:26 PM Date of : 1950 Age: 73 Procedure: Colonoscopy Indications: High risk colon cancer surveillance: Personal history of colonic polyps Providers: Giovani Thompson DO Referring MD: Lainey Gee Medicines: Monitored Anesthesia Care Patient Profile: Refer to note in patient chart for documentation of history and physical. Patient has symptoms of chronic heartburn. Last Colonoscopy: several years ago. Complications: No immediate complications. Procedure: Pre-Anesthesia Assessment: - Prior to the procedure, a History and Physical was performed, and patient medications and allergies were reviewed. The patient is competent. The risks and benefits of the procedure and the sedation options and risks were discussed with the patient. All questions were answered and informed consent was obtained. Patient identification and proposed procedure were verified by the physician in the pre-procedure area. Mental Status Examination: alert and oriented. Airway Examination: normal oropharyngeal airway and neck mobility. Respiratory Examination: clear to auscultation. CV Examination: normal. Prophylactic Antibiotics: The patient does not require prophylactic antibiotics. Prior Anticoagulants: The patient has taken no anticoagulant or antiplatelet agents except for NSAID medication. ASA Grade Assessment: II - A patient with mild systemic disease. After reviewing the risks and benefits, the patient was deemed in satisfactory condition to undergo the procedure. The anesthesia plan was to use monitored anesthesia care (MAC). Immediately prior to administration of medications, the patient was re-assessed for adequacy to receive sedatives. The heart rate, respiratory rate, oxygen saturations, blood pressure, adequacy of pulmonary ventilation, and response to care were monitored throughout the procedure. The physical status of the patient was re-assessed after the procedure. After I obtained informed consent, the scope was passed under direct vision. Throughout the procedure, the patient's blood pressure, pulse, and oxygen saturations were monitored continuously. The pediatric colonoscope was introduced through the anus and advanced to the cecum, identified by appendiceal orifice and ileocecal valve. The colonoscopy was performed without difficulty. The patient tolerated the procedure well. The quality of the bowel preparation was fair. The ileocecal valve, appendiceal orifice, and rectum were photographed. Scope In: 2:28:16 PM Scope Withdrawal Time 0 hours 6 minutes 40 seconds Scope Out: 2:40:56 PM Total Procedure Duration Time 0 hours 12 minutes 40 seconds Findings: The perianal and digital rectal examinations were normal. Stool was found in the rectum, in the sigmoid colon, in the descending colon, at the splenic flexure, in the transverse colon, in the ascending colon and in the cecum. Impression: - Preparation of the colon was fair. - Stool in the rectum, in the sigmoid colon, in the descending colon, at the splenic flexure, in the transverse colon, in the ascending colon and in the cecum. - No specimens collected. Recommendation: - Discharge patient to home. - Resume previous diet. - Continue present medications. - Repeat colonoscopy in 1 year because the bowel preparation was poor. Procedure Code(s): --- Professional --- 16894, Colonoscopy, flexible; diagnostic, including collection of specimen(s) by brushing or washing, when performed (separate procedure) CPT copyright 2021 [employer]. All rights reserved. The codes documented in this report are preliminary and upon utility locator review may be revised to meet current compliance requirements. Giovani Thompson DO 04/16/2024 2:57:19 PM This report has been signed electronically. Number of Addenda: 0 Note Initiated On: 04/16/2024 2:26 PM
--- NOTE | 2024-04-16 14:58 | OP.CCLET_ITS ---
04/16/2024 Lainey Gee [address] [place] [address] Re : Colonoscopy procedure for Frances Sahni Dear Dr. Gee This procedure was performed on Tuesday, April 16, 2024. My impressions and recommendations are as follows: Impressions : - Preparation of the colon was fair. - Stool in the rectum, in the sigmoid colon, in the descending colon, at the splenic flexure, in the transverse colon, in the ascending colon and in the cecum. - No specimens collected. Recommendations : - Discharge patient to home. - Resume previous diet. - Continue present medications. - Repeat colonoscopy in 1 year because the bowel preparation was poor. My findings are described in the full procedure note, which is enclosed. If I can be of further assistance, please feel free to contact me at . Sincerely, Giovani Thompson, 04/16/2024 2:57:19 PM This report has been signed electronically.
--- NOTE | 2024-04-16 18:30 | PCM.POSTANE2 ---
Anesthesia Postop Eval I Sum Postop Eval Completion status Anesthesia document: Postop Eval 1 completed: Yes Anesthesia Postop Eval I Summary Anesthesia Postop Eval I Summary: Anesthesia Postop Eval I: Assessment Summary Airway patent Yes 04/16/24 14:56 [email or web address] Spontaneous unlabored Yes 04/16/24 14:56 [email or web address] respirations Mental status Awake,Calm 04/16/24 14:56 [email or web address] nausea No 04/16/24 14:56 [email or web address] Vomiting No 04/16/24 14:56 [email or web address] Anesthesia Postop Eval I: Fluid Summary Crystalloid volume administer 45 04/16/24 14:56 [email or web address] (ml) Colloids volume administered ( ml) Blood Product volume administered (ml) Total IV fluid infused 45 04/16/24 14:56 [email or web address] Anesthesia Postop Eval I: Summary Notes Anesthesia Complication No 04/16/24 14:56 [email or web address] Anesthesia Complication Comment: Post-operative progress note Anesthesia: Postop Eval II Evaluation Mental status: Awake and Calm Pain Level: 0 nausea: No Vomiting: No Complications Anesthesia Complication: No
== END 2024-04-16 15:40 | disposition home or self-care (01) ==
LOC: EN 11:50 → AC 11:51
PROVIDERS: PCP Family Medicine; Referring Provider Family Medicine; Visit Provider Internal Medicine Gastroenterology
PROC: 0DJD8ZZ Inspection of Lower Intestinal Tract, Via Natural or Artificial Opening Endoscopic (ICD-10-PCS; CPT 45378; principal; 2024-04-16 13:25)
DX: Z12.11 Encounter for screening for malignant neoplasm of colon (principal); K44.9 Diaphragmatic hernia without obstruction or gangrene; I10 Essential (primary) hypertension; E78.5 Hyperlipidemia, unspecified; K21.00 Gastro-esophageal reflux disease with esophagitis, without bleeding; G47.30 Sleep apnea, unspecified; Z79.899 Other long term (current) drug therapy; Z80.0 Family history of malignant neoplasm of digestive organs; Z86.0100 Personal history of colon polyps, unspecified; Z87.891 Personal history of nicotine dependence
CPT/HCPCS: G0105; 43239; 88305; 88312; 88341; 88342; A4216; J2405

== ENCOUNTER → 2024-10-15 | Outpatient (CLI) | payer MEDICARE, OTHER, SELFPAY ==
--- NOTE | 2024-10-15 12:03 | BI_ITS ---
EXAM: SCRN MAMM (CAD)W/ADRIANNA BILAT DATE: 10/15/2024 CLINICAL HISTORY: F, Age 73 y/o , SCREEN FOR BREAST CANCER TECHNIQUE: SCRN MAMM (CAD)W/ADRIANNA BILAT COMPARISON: Prior exam(s) dated 06/16/2023, 04/07/2022, 02/18/2021. FINDINGS: TISSUE DENSITY: There are scattered areas of fibroglandular density. Bilateral Breast Mammographic Findings: No significant masses, calcifications or other abnormalities are identified. BI/SCRN MAMM (CAD)W/ADRIANNA BILAT IMPRESSION: There is no mammographic evidence of malignancy. OVERALL FINAL ASSESSMENT BI-RADS 1: NEGATIVE. RECOMMENDATION: Routine annual follow-up in 1 Year A letter with findings and recommendations will be mailed to the patient. Reading Location: [id number]
== END | disposition home or self-care (01) ==
LOC: OPBI 12:02
PROVIDERS: PCP Family Medicine; Referring Provider Nurse Practitioner Women's Health; Visit Provider Nurse Practitioner Women's Health
DX: Z12.31 Encounter for screening mammogram for malignant neoplasm of breast (principal)
CPT/HCPCS: 77063; 77067